=== PATIENT | male | born 1960 | race Caucasian/White ===

== ENCOUNTER 2019-09-06 | Emergency (ER) | payer OTHER ==
[2019-09-06] MEDS ORDERED: LEVOTHYROXIN50 MCG PO (12:53)
[2019-09-06] MEDS ORDERED: HYDROCO/APAP1 TA9 PO (14:00)
[2019-09-07] MEDS ORDERED: FLEXERIL PO ×2 (07:18→07:39)
== END 2019-09-06 14:30 | disposition home or self-care (01) | DRG 563 ==
PROC: 2W3DX1Z Immobilization of Left Lower Arm using Splint (ICD-10-PCS; principal; 2019-09-06)
DX: S52.502A Unspecified fracture of the lower end of left radius, initial encounter for closed fracture (principal); S52.602A Unspecified fracture of lower end of left ulna, initial encounter for closed fracture; S00.81XA Abrasion of other part of head, initial encounter; S30.810A Abrasion of lower back and pelvis, initial encounter; S20.212A Contusion of left front wall of thorax, initial encounter; V28.4XXA Motorcycle driver injured in noncollision transport accident in traffic accident, initial encounter

== ENCOUNTER 2019-09-07 | Emergency (ER) | payer OTHER ==
[~2019-09-07] MED LIST: HYDROCO/APAP1 TA9 PO; LEVOTHYROXIN50 MCG PO
[2019-09-07] MEDS ORDERED: FLEXERIL PO ×2 (07:18→07:39)
== END 2019-09-07 07:44 | disposition home or self-care (01) | DRG 999 ==
DX: M54.5 Low back pain (principal); S52.502A Unspecified fracture of the lower end of left radius, initial encounter for closed fracture; S52.602A Unspecified fracture of lower end of left ulna, initial encounter for closed fracture; S00.83XA Contusion of other part of head, initial encounter; S20.212A Contusion of left front wall of thorax, initial encounter; S70.12XA Contusion of left thigh, initial encounter; V28.0XXA Motorcycle driver injured in noncollision transport accident in nontraffic accident, initial encounter